=== PATIENT | male | born 1960 | race Caucasian/White ===

== ENCOUNTER → 2022-09-13 09:40 | Outpatient (CLI) | payer OTHER, SELFPAY ==
--- NOTE | ~2022-09-13 | MM_ITS ---
EXAMINATION: MM diagnostic melanie BI w ronan HISTORY: Bilateral tenderness around the nipples TECHNIQUE: MLO and CC 3-D tomosynthesis images of both breasts were performed and synthetic 2-D image s were generated. CAD analysis was submitted and interpreted. COMPARISON: None BREAST PARENCHYMAL COMPOSITION: There are scattered areas of fibroglandular density. FINDINGS: There is mild bilateral gynecomastia. No suspicious mass, architectural distortion, malignant calcification, skin thickening or retraction of either breast is evident. There are occasional benign appearing circumscribed right lymph nodes. IMPRESSION: Bilateral mild gynecomastia; no evidence of malignancy BI-RADS Category 2: Benign finding(s). Reviewed, dictated and finalized at location A.
== END ==
PROVIDERS: PCP Internal Medicine; Visit Provider Internal Medicine
DX: N62 Hypertrophy of breast (principal)
CPT/HCPCS: 77062; 77066; G0279

== ENCOUNTER 2023-10-11 11:18 | Emergency (ER) | payer OTHER, SELFPAY ==
[2023-10-11 11:21] VITALS: BP 186/56; PULSE 76; RESP 19; TEMP 37; O2SAT 99
[2023-10-11 11:40] VITALS: RESP 19; O2SAT 99
--- NOTE | 2023-10-11 12:22 | ED.GENADULT ---
HPI - General Adult General Chief complaint: Unspecified Stated complaint: facial swelling, COVID Time Seen by Provider: 10/11/23 11:45 History of Present Illness HPI narrative: 62-year-old male presents to the emergency department for evaluation for right-sided facial swelling. Patient was diagnosed with COVID on Sunday and started nose and the facial pain and swelling last night. Patient does have history of poor dentition. Related Data Allergies Allergy/AdvReac Type Severity Reaction Status Date / Time No Known Allergies Allergy Verified 10/11/23 11:23 Review of Systems Review of Systems: All systems reviewed & are unremarkable except as noted in HPI and below Exam Narrative: APPEARANCE: Well appearing, no pain, no distress, well-nourished. HEAD: normocephalic, atraumatic. EYES: PERRLA/EOMI, conjunctivae clear. NOSE: Normal no drainage EARS:TMS clear with good light reflex. THROAT: Pharynx clear, no exudate. Mouth: Poor dentition with no abscess amenable to drainage, no trismus NECK: Supple. No adenopathy, no masses. RESPIRATORY: Airway patent, respirations nonlabored. Clear to auscultation bilaterally, no rales, rhonchi, wheezing. CARDIOVASCULAR: Regular rate and rhythm without murmurs rubs or gallops. ABDOMINAL: Soft, nontender, nondistended, normal bowel sounds MUSCULOSKELETAL: Moves all extremities. Strength/ROM intact, No edema, No calf tenderness. NEURO: Alert. Cranial nerves II through XII intact. Grossly intact SKIN: Warm, dry. Normal Color Course Course Emergency Course: Patient was started on antibiotics for dental infection Vital Signs Vital signs: Vital Signs Temperature 98.6 F 10/11/23 11:21 Pulse Rate 76 10/11/23 11:21 Respiratory Rate 19 10/11/23 11:21 Blood Pressure 186/56 H 10/11/23 11:21 Pulse Oximetry 99 10/11/23 11:21 Oxygen Delivery Room Air 10/11/23 11:21 Temperature 98.6 F 10/11/23 11:21 Pulse Rate 76 10/11/23 11:21 Respiratory Rate 19 10/11/23 11:40 Blood Pressure 186/56 H 10/11/23 11:21 Pulse Oximetry 99 10/11/23 11:40 Oxygen Delivery Room Air 10/11/23 11:21 Medical Decision Making MDM Narrative Medical decision making narrative: 62-year-old male presenting to the emergency department for evaluation for facial swelling and dental pain. Patient was started on antibiotics. On exam patient has no abscess amenable to drainage. Vital Signs Vital Signs: Vital Signs Temperature 98.6 F 10/11/23 11:21 Pulse Rate 76 10/11/23 11:21 Respiratory Rate 19 10/11/23 11:21 Blood Pressure 186/56 H 10/11/23 11:21 Pulse Oximetry 99 10/11/23 11:21 Oxygen Delivery Room Air 10/11/23 11:21 Temperature 98.6 F 10/11/23 11:21 Pulse Rate 76 10/11/23 11:21 Respiratory Rate 19 10/11/23 11:40 Blood Pressure 186/56 H 10/11/23 11:21 Pulse Oximetry 99 10/11/23 11:40 Oxygen Delivery Room Air 10/11/23 11:21 Discharge Plan Discharge Clinical Impression: Dental infection Patient Disposition: Home, Self-Care Condition: Stable Instructions: Antibiotic Form Additional Instructions: Antibiotics as directed until completed. Have close follow-up with your dentist. Prescriptions: New amoxicillin-pot clavulanate 875-125 mg tablet 1 tablet PO Q12H Qty: 14 0RF Follow-up/Referrals: Georges,MD Bryan [Primary Care Provider] -
[2023-10-11] MEDS: AMOXICILLIN/CLAVULANATE K 875-125 MG TAB 1 TABLET PO (12:31)
== END 2023-10-11 12:32 | disposition home or self-care (01) ==
PROVIDERS: Emergency Provider Emergency Medicine; PCP Internal Medicine
DX: K04.7 Periapical abscess without sinus (principal); U07.1 COVID-19
CPT/HCPCS: 99283; A9270

== ENCOUNTER 2025-03-02 14:39 | Outpatient (CLI) | payer OTHER, SELFPAY ==
--- NOTE | 2025-03-02 | ECHO_ITS ---
Patient Info Name: Walker Melendez Age: 64 years : 1960 Gender: Male Ht: 72 in Wt: 237 lbs BSA: 2.37 m2 HR: 87 bpm BP: 163 / 72 mmHg Technical Quality: Fair Exam Date: 03/02/2025 2:54 PM Patient Status: O Admit Date: 03/02/2025 Exam Type: CA echo doppler color flow Complete two-dimensional, color flow and Doppler transthoracic echocardiogram is performed. Summary 1. Complete two-dimensional, color flow and Doppler transthoracic echocardiogram is performed. 2. Left ventricular systolic function is normal, estimated at 60-65. 3. The left ventricular diastolic function is normal. 4. The aortic valve is probable trileaflet. 5. There is moderate aortic valve sclerosis. 6. There is no aortic valve stenosis. 7. There is mild aortic valve regurgitation. 8. The mitral valve has mild posterior prolapse. 9. There is no mitral valve regurgitation. Left Ventricle Left ventricular chamber dimension is normal. Left ventricular systolic function is normal, estimated at 60-65. There is no increased left ventricular wall thickness. Left ventricular septal wall motion is normal. The left ventricular diastolic function is normal. Right Ventricle Right ventricular chamber dimension is normal. Right ventricular systolic function is normal. Left Atria Left atrial chamber dimension is normal. Right Atria Right atrial chamber dimension is normal. Aortic Valve The aortic valve is probable trileaflet. There is moderate aortic valve sclerosis. There is no aortic valve stenosis. There is mild aortic valve regurgitation. Pulmonic Valve The pulmonic valve is normal. There is no pulmonic valve stenosis. There is no pulmonic regurgitation. Mitral Valve The mitral valve has mild posterior prolapse. There is no mitral valve stenosis. There is no mitral valve regurgitation. Tricuspid Valve The tricuspid valve leaflets are normal. There is no significant tricuspid valve stenosis. There is mild tricuspid valve regurgitation. Mild pulmonary hypertension, estimated pulmonary arterial systolic pressure is 41 mmHg. Pericardium/Pleural The pericardium appears normal. There is no pericardial effusion. Inferior Vena Cava Normal inferior vena cava with >50% collapse upon inspiration consistent with normal right atrial pressure, 5 mmHg. Aorta The aortic root size at the sinus of Valsalva is normal. The prox ascending aorta size is normal. Left Ventricular Outflow Tract Name Value Normal LVOT 2D LVOT Diameter 2.3 cm LVOT Doppler LVOT Peak Velocity 140 cm/s LVOT Peak Gradient 7 mmHg LVOT Mean Gradient 4 mmHg LVOT VTI 33 cm LVOT VTI/AV VTI Ratio 0.5 LVOT Stroke Volume 135 ml LVOT CO 10.0 l/min LVOT CI 4.2 l/min/m2 Pulmonic Valve Name Value Normal RVOT Doppler RVOT Peak Velocity 78 cm/s RVOT Peak Gradient 2 mmHg PV Doppler PV Peak Velocity 108 cm/s PV Peak Gradient 5 mmHg Mitral Valve Name Value Normal MV Doppler MV Peak Gradient 36 mmHg MV Mean Gradient 16 mmHg MV Area (Cont Eq VTI) 1.8 cm2 MV Diastolic Function MV E Peak Velocity 114 cm/s MV A Peak Velocity 59 cm/s MV E/A 1.9 MV Decel Time (PW) 210 ms Tricuspid Valve Name Value Normal TV Regurgitation Doppler TR Peak Velocity 301 cm/s TR Peak Gradient 31 mmHg Estimated PAP/RSVP RA Pressure 5 mmHg <=5 PA Systolic Pressure 41 mmHg <36 RV Systolic Pressure 41 mmHg <36 TV Annular TDI TV Lateral Karla s' Velocity 17.2 cm/s >=9.5 Aorta Name Value Normal Ascending Aorta Ao Root Diameter (MM) 4.0 cm Ao Root Diam Index (MM) 1.7 cm/m2 Aortic Valve Name Value Normal AV Doppler AV Peak Velocity 264 cm/s AV Peak Gradient 24 mmHg AV Mean Gradient 14 mmHg AV VTI 63 cm AV Area (Cont Eq VTI) 2.1 cm2 >=3.0 AV Area (Cont Eq Wili) 2.1 cm2 AV DI (Wili) 0.53 AV Regurgitation 2D LVOT Area 4.0 cm2 Ventricles Name Value Normal LV Dimensions 2D/MM IVS Diastolic Thickness (2D) 1.0 cm 0.6-1.0 IVS Diastole Thickness (MM) 0.9 cm 0.6-1.0 LVID Diastole (2D) 5.2 cm 4.2-5.8 LVID Diastole (MM) 5.6 cm 4.2-5.8 LVIW Diastolic Thickness (2D) 1.2 cm 0.6-1.0 LVIW Diastolic Thickness (MM) 1.0 cm 0.6-1.0 LVID Systole (2D) 3.2 cm 2.5-4.0 LVID Systole (MM) 3.4 cm 2.5-4.0 LVOT Diameter 2.3 cm LV Mass (2D Cubed) 218.37 g 88.00-224.00 LV Mass Index (2D Cubed) 92 g/m2 49-115 Relative Wall Thickness (2D) 0.45 <=0.42 LV Mass (MM Cubed) 208.80 g 88.00-224.00 LV Mass Index (MM Cubed) 88 g/m2 49-115 Relative Wall Thickness (MM) 0.35 LV Fractional Shortening/Ejection Fraction 2D/MM LV Fractional Shortening (2D) 37 % 25-43 LV Fractional Shortening (MM) 40 % 25-43 LV EF (MM Teichholz) 70 % LV EF (2D Teichholz) 67 % LV Diastolic Volume (4C MOD) 158 ml LV EF (4C MOD) 54 % LV Diastolic Volume (2C MOD) 187 ml LV EF (2C MOD) 57 % LV Diastolic Volume (BP MOD) 173 ml 62-150 LV Diastolic Volume Index (BP MOD) 73 ml/m2 34-74 LV Systolic Volume (BP MOD) 78 ml 21-61 LV Systolic Volume Index (BP MOD) 33 ml/m2 11-31 LV EF (BP MOD) 55 % 52-72 LV Diastolic Length (4C) 9.0 cm LV Systolic Length (4C) 7.6 cm LV Stroke Volume (4C MOD) 85 ml Atria Name Value Normal LA Dimensions LA Dimension (MM) 4.7 cm 3.0-4.0 Report Signatures
--- OUTSIDE RECORDS SUMMARY | 2025-03-02 15:00 | XMS_ITS | Clinical Summary ---
Author Organization [facility] Address [facility] [place] [address] Care Team Providers Care Prosthetic Technician Name Role Phone Bryan Su MD Primary Care Provider Allergies Active Allergy Reactions Criticality Noted Date Comments Lisinopril Rash Low 07/16/2024 Medications atorvastatin (LIPITOR) 40 MG tablet Take 1 tablet (40 mg total) by mouth daily. 08/04/19 23 Active amLODIPine (NORVASC) 10 MG tablet Take 1 tablet (10 mg total) by mouth daily. 30 tablet 2 02/04/20 25 Active semaglutide-we ight management (WEGOVY) 0.25 mg/dose injection (PEN) Inject 0.25 mg every week by subcutaneous route for 30 days. 11/05/19 25 025 Discontinued Active Problems Problem Noted Date Diagnosed Date Bilateral carotid artery stenosis 12/03/2024 Backache 07/16/2024 Enthesopathy of hip region 07/16/2024 Erectile dysfunction due to arterial insufficien cy 07/16/2024 Essential hypertension 07/16/2024 Overview (07/16/2024): Phreesia 12/31/2022 Increased frequency of urination 07/16/2024 Neck pain 07/16/2024 Obesity 07/16/2024 Osteoarthrosis 07/16/2024 Varicose veins of both lower extremities 025 Upper respiratory infection 11/27/2023 Coronary arteriosclerosis 11/22/2023 Persistent insomnia 05/22/2023 Varicose veins of lower extremity 05/22/2023 Decreased testosterone level 10/20/2022 Gynecomastia 08/08/2022 Hypogonadism in male 08/08/2022 Hyperlipidemia 06/16/2022 Vitamin D deficiency 06/16/2022 Erectile dysfunction 05/08/2022 Low vitamin D level 05/08/2022 Polyuria 05/08/2022 Sensorineural hearing loss (SNHL) of both ears 1 03/13/2021 Tinnitus of left ear 01/11/2022 Resolved Problems Problem Noted Date Diagnosed Date Resolved Date Encounter for screening for malignant neoplasm of prostate 07/16/2024 07/21/2024 Encounters Date Type Department Care Team Description 02/03/2025 1:45 PM CLIENT SOLUTIONS SPECIALIST Office Visit [facility], [address] [address] Sherri Aleman MD Consult (CAC per Lung CT) 02/03/2025 Travel 12/30/2024 Telephone [facility], [address] [address] Vipul Waite MD Results 12/30/2024 Orders Only [facility] [address] [address] Vipul Waite MD 12/17/2024 12:40 PM CDT - 12/17/2024 11:59 PM CDT Hospital Encounter [facility] [place] [address] Vipul Waite MD Discharge Disposition: Home or Self Care (Routine Discharge) 12/17/2024 Travel 12/03/2024 2:30 PM CDT Office Visit [facility], [address] [address] Vipul Waite MD Carotid Stenosis 12/03/2024 Orders Only [facility], [address] [address] Vipul Waite MD 12/03/2024 Orders Only [facility], [address] [address] Mariposa Mathur MA 12/03/2024 Travel from Last 3 Months Immunizations Immunization Administration Dates Next Due Arexvy Respiratory Syncytial Virus (RSV, adjuvanted) 0.5 mL, PF 02/22/2023 FLUCELVAX (ccIIV3, TRIVALENT, 0.5mL) 11/14/2023 Influenza (Generic) 02/17/2014,03/15/2012 Influenza Adult (Generic) 12/29/2022,,12/23/2021,2019,03/10/2019,02/06/2018,01/17/2017 Shingrix 08/31/2022,05/10/2022 Tdap (Generic) 05/09/2022 Family History Medical History Relation Comments Stroke Father Alzheimer's disease Mother Relation Status Comments Father Mother Social History Tobacco Use Types Packs/Day Years Used Date Smoking Tobacco: Former Cigarettes Q uit: 03/05/2004 Cigars Passive Smoke Exposure: Never Smokeless Tobacco: Never Alcohol Use Standard Drinks/Week Comments Yes 16.7 (1 standard drink = 0.6 oz pure alcohol) Sex and Gender Information Value Date Recorded Sex Assigned at Male 12/17/2024 12:38 PM CDT Legal Sex Male 2:40 PM CDT Gender Identity Not on file Sexual Orientation Not on file Last Filed Vital Signs Vital Sign Reading Time Taken Comments Blood Pressure 170/64 02/03/2025 1:34 PM CLIENT SOLUTIONS SPECIALIST Pulse 77 02/03/2025 1:34 PM CLIENT SOLUTIONS SPECIALIST Temperature - - Respiratory Rate - - Oxygen Saturation 99% 02/03/2025 1:34 PM CLIENT SOLUTIONS SPECIALIST Inhaled Oxygen Concentration - - Weight 109.6 kg (241 lb 9.6 oz) 02/03/2025 1:34 PM CLIENT SOLUTIONS SPECIALIST Height 182.9 cm (6') 02/03/2025 1:34 PM CLIENT SOLUTIONS SPECIALIST Body Mass Index 32.77 02/03/2025 1:34 PM CLIENT SOLUTIONS SPECIALIST Plan of Treatment Upcoming Encounters Date Type Department Care Team (Late st Contact Info) Description 04/07/2025 1:15 PM CLIENT SOLUTIONS SPECIALIST Office Visit [facility] [address] [facility] [address], [address] [place] [address] Sherri Aleman MD [address] [facility] [address] [place] [address] Health Maintenance Due Date Last Done Comments Colorectal Cancer Screening Colonoscopy (10 Years) 1960 Annual Physical 10/30/1963 Hepatitis C 1978 Pneumococcal Vaccine: 50+ Years (1 of 2 - PCV) 10/30/1979 COVID-19 Vaccine ( - 2024- season) 2024 11/14/2023, 12/29/2022, 09/24/2021, Additional history exists ASCVD LDL 11/12/2024 11/13/2023 Influenza Adult (#1) 2024 11/14/2023, 12/29/2022, 12/28/2021, Additional history exists DTaP, Tdap and Td Vaccines (2 - Td or Tdap) 05/09/2032 05/09/2022 Zoster Vaccines Completed 08/31/2022, 05/10/2022 RSV Immunization or 60+ Years Completed 02/22/2023 Hepatitis A Vaccines Aged Out No long er eligible based on patient's age to complete this topic Meningococcal B Vaccine Aged Out No l onger eligible based on patient's age to complete this topic Meningococcal Vaccine Aged Out No joan emilio eligible based on patient's age to complete this topic RSV Immunizations Under 20 Months Aged Out No longer eligible based on patient's age to complete this topic Procedures Procedure Name Priority Date/Time Associated Diagnosis Comments ELECTROCARDIOGRAM (NON MIDMARK ACQUIRED) Routine 02/03/2025 2:04 PM CLIENT SOLUTIONS SPECIALIST Bilateral carotid artery stenosis USV CAROTID DUPLEX MAIKOL Routine 1:27 PM CDT Carotid stenosis, bilateral LIPID PANEL Routine 11/13/2023 from Last 3 Months or Most Recently Relevant to Health Maintenance Results * ELECTROCARDIOGRAM (02/03/2025 2:04 PM CLIENT SOLUTIONS SPECIALIST) ECG QT 380 [facility] QTC 442 [facility] 02/03/2025 2:04 PM CLIENT SOLUTIONS SPECIALIST Narrative [facility] - 02/06/2025 6:27 PM CLIENT SOLUTIONS SPECIALIST Dao Hernandez [facility] Test Date: 2025-02-03 Pat Name: JF MELENDEZ Department: 112 Room: 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1960 Requested By: SHERRI ALEMAN Order Number: [id number] Reading MD: Woody Diggs Measurements Intervals [place] Rate: 81 P: 54 VT: 163 QRS: 33 QRSD: 114 T: 56 QT: 380 QTc: 442 Interpretive Statements SINUS RHYTHM MODERATE INTRAVENTRICULAR CONDUCTION DELAY No prior ECG for comparison NT SOLUTIONS SPECIALIST Procedure Note Woody Diggs MD - 02/06/2025 Dao Hernandez [facility] Test Date: 2025-02-03 Pat Name: JF MELENDEZ Department: 112 Room: 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1960 Requested By: SHERRI ALEMAN Order Number: [id number] Reading MD: Woody Diggs Measurements Intervals [place] Rate: 81 P: 54 VT: 163 QRS: 33 QRSD: 114 T: 56 QT: 380 QTc: 442 Interpretive Statements SINUS RHYTHM MODERATE INTRAVENTRICULAR CONDUCTION DELAY No prior ECG for comparison NT SOLUTIONS SPECIALIST us Sherri Aleman MD PROCEDURES-ORDERABLE NO CHARGE Final Result [facility] * USV CAROTID DUPLEX MAIKOL (12/17/2024 1:27 PM CDT) Anatomical Region Laterality Modality Neck Vascular Ultraso und 12/17/2024 12:5 7 PM CDT Narrative 12/18/2024 8:46 AM CDT CAROTID ARTERY DUPLEX IMAGING VASCULAR LAB Pat.Name: JF MELENDEZ Pat.ID: [id number] .Date: 12/17/2024 : [id number] PRISCILLA Montague Exam Time: 12:57:00 PM Study Type:LUCAS VS Duplex Carotid BI Age: 8 1960,64Y Sex: M Sonogrphr: Scar Mandujano RDMS, RVT History / Clinical:pt had a lifeline screening, reevaluate GILES Procedures: Nixon scale, Color Doppler imaging, Doppler Spectral Analysis Race: W ++++++++++++++++++++++++++++++++++++ SUMMARY: ++++++++++++++++++++++++++++++++++++ Right side: The right bifurcation-internal carotid artery has heterogeneous plaque. Internal carotid maximum velocity is 114 cm/s, with a ratio of 1.12 . The common carotid artery has no plaque present. The external carotid artery has heterogeneous plaque proximally. Vertebral artery flow is antegrade. No defined ulceration noted. Left side: The left bifurcation-internal carotid artery has heterogeneous plaque. Internal carotid maximum velocity is 115 cm/s , with a ratio of 1.22 . The common carotid artery has no plaque present. The external carotid artery has heterogeneous plaque proximally. Vertebral artery flow is antegrade. No defined ulceration noted. CONCLUSION: The right internal carotid shows heterogeneous plaque and a <50% stenosis. Right vertebral artery is antegrade. No evidence of ulceration. The left internal carotid shows heterogeneous plaque and a <50% stenosis. Left vertebral artery is antegrade. No evidence of ulceration. ++++++++++++++++++++++++++++++++++++ MEASUREMENTS: ++++++++++++++++++++++++++++++++++++ DOPPLER Right Prox CCA Prox CCA PSV 95 cm/s Right Dist CCA Dist CCA PSV 102 cm/s Right Prox ICA Prox ICA PSV 53.1 cm/s Prox ICA EDV 15 cm/s Right Mid ICA Mid ICA PSV 67.3 cm/s Mid ICA EDV 18 cm/s Right Dist ICA Dist ICA PSV 114 cm/s Dist ICA EDV 21.1 cm/s Right Prox ECA Prox ECA PSV 114 cm/s Right Vertebral Vertebral PSV 64.1 cm/s Right ICA/CCA RATIO ICA/CCA RATIO P 1.12 Left Prox CCA Prox CCA PSV 128 cm/s Left Dist CCA Dist CCA PSV 94.2 cm/s Left Prox ICA Prox ICA PSV 112 cm/s Prox ICA EDV 22.3 cm/s Left Mid ICA Mid ICA PSV 102 cm/s Mid ICA EDV 22.3 cm/s Left Dist ICA Dist ICA PSV 115 cm/s Dist ICA EDV 20.6 cm/s Left Prox ECA Prox ECA PSV 111 cm/s Left Vertebral Vertebral PSV 76.3 cm/s Left ICA/CCA RATIO ICA/CCA RATIO P 1.22 <Electronic Signature> 12/18/2024 08:46 AM Vipul Waite M.D. Procedure Note Vipul Waite MD - 12/18/2024 CAROTID ARTERY DUPLEX IMAGING VASCULAR LAB Pat.Name: JF MELENDEZ Pat.ID: [id number] .Date: 12/17/2024 : [id number] PRISCILLA Montague Exam Time: 12:57:00 PM Study Type:LUCAS VS Duplex Carotid BI Age: 8 1960,64Y Sex: M Sonogrphr: Scar Mandujano RDMS, RVT History / Clinical:pt had a lifeline screening, reevaluate GILES Procedures: Nixon scale, Color Doppler imaging, Doppler Spectral Analysis Race: W ++++++++++++++++++++++++++++++++++++ SUMMARY: ++++++++++++++++++++++++++++++++++++ Right side: The right bifurcation-internal carotid artery has heterogeneous plaque. Internal carotid maximum velocity is 114 cm/s, with a ratio of 1.12 . The common carotid artery has no plaque present. The external carotid artery has heterogeneous plaque proximally. Vertebral artery flow is antegrade. No defined ulceration noted. Left side: The left bifurcation-internal carotid artery has heterogeneous plaque. Internal carotid maximum velocity is 115 cm/s , with a ratio of 1.22 . The common carotid artery has no plaque present. The external carotid artery has heterogeneous plaque proximally. Vertebral artery flow is antegrade. No defined ulceration noted. CONCLUSION: The right internal carotid shows heterogeneous plaque and a <50% stenosis. Right vertebral artery is antegrade. No evidence of ulceration. The left internal carotid shows heterogeneous plaque and a <50% stenosis. Left vertebral artery is antegrade. No evidence of ulceration. ++++++++++++++++++++++++++++++++++++ MEASUREMENTS: ++++++++++++++++++++++++++++++++++++ DOPPLER Right Prox CCA Prox CCA PSV 95 cm/s Right Dist CCA Dist CCA PSV 102 cm/s Right Prox ICA Prox ICA PSV 53.1 cm/s Prox ICA EDV 15 cm/s Right Mid ICA Mid ICA PSV 67.3 cm/s Mid ICA EDV 18 cm/s Right Dist ICA Dist ICA PSV 114 cm/s Dist ICA EDV 21.1 cm/s Right Prox ECA Prox ECA PSV 114 cm/s Right Vertebral Vertebral PSV 64.1 cm/s Right ICA/CCA RATIO ICA/CCA RATIO P 1.12 Left Prox CCA Prox CCA PSV 128 cm/s Left Dist CCA Dist CCA PSV 94.2 cm/s Left Prox ICA Prox ICA PSV 112 cm/s Prox ICA EDV 22.3 cm/s Left Mid ICA Mid ICA PSV 102 cm/s Mid ICA EDV 22.3 cm/s Left Dist ICA Dist ICA PSV 115 cm/s Dist ICA EDV 20.6 cm/s Left Prox ECA Prox ECA PSV 111 cm/s Left Vertebral Vertebral PSV 76.3 cm/s Left ICA/CCA RATIO ICA/CCA RATIO P 1.22 <Electronic Signature> 12/18/2024 08:46 AM Vipul Waite M.D. Vipul Waite MD [facility] Final Result * LIPID PANEL (11/13/2023) CHOLESTEROL 160 TRIGLYCERIDES 141 HDL 63 LDL (CALCULATED) 73 Default History Genericprovider LABORATORY Final Result from Last 3 Months or Most Recently Relevant to Health Maintenance Insurance [facility] Care Teams Prosthetic Technician Relationship Specialty Start Date End Date Bryan Su MD [address] [facility] [address] [place] [address] PCP - General INTERNAL MEDICINE 06/20/24
--- OUTSIDE RECORDS SUMMARY | 2025-03-02 15:00 | XMS_ITS | Encounter Summary ---
Author Organization [facility] Address [facility] [place] [address] Care Team Providers Care Care Manager Name Role Phone Bryan Su MD Primary Care Provider Encounter Details Date Type Department Care Team (Late st Contact Info) Description 08/01/2024 Abstract [facility] [phone] Tan Cardoso MA Social History Tobacco Use Types Packs/Day Years Used Date Smoking Tobacco: Never Assessed Sex and Gender Information Value Date Recorded Sex Assigned at Male 12/17/2024 12:38 PM CDT Legal Sex Male 2:40 PM CDT Gender Identity Not on file Sexual Orientation Not on file documented as of this encounter Plan of Treatment Upcoming Encounters Date Type Department Care Team (Late st Contact Info) Description 04/07/2025 1:15 PM CREW CLERK Office Visit [facility] [phone] Sherri Aleman MD 3 [facility] [place] [phone] documented as of this encounter Procedures Procedure Name Priority Date/Time Associated Diagnosis Comments COMPREHENSIVE METABOLIC PANEL Routine 05/20/2024 CBC, MANUAL DIFF Routine 05/20/2024 THYROXINE, FREE (FT4) Routine 05/20/2024 THYROID STIM HORMONE TSH Routine 05/20/2024 COMPREHENSIVE METABOLIC PANEL Routine 11/13/2023 LIPID PANEL Routine 11/13/2023 CBC, MANUAL DIFF Routine 11/13/2023 documented in this encounter Results * COMPREHENSIVE METABOLIC PANEL (05/20/2024) SODIUM S/P/B 141 GLUCOSE 91 mg/dL AST 23 BUN 10 CREATININE S/P/B 0.74 0.7 - 1.3 CALCIUM S/P/B 9.2 POTASSIUM S/P/B 4.7 CHLORIDE S/P/B 105 ALT 20 GFR ESTIMATE 102 Default History Genericprovider LABORATORY Final Result * CBC, MANUAL DIFF (05/20/2024) Pathologist [facility] WBC 7.1 HGB 14.3 HCT 43.6 PLT 154 us Default History Genericprovider LABORATORY Final Result * THYROXINE, FREE (FT4) (05/20/2024) Pathologist [facility] FREE T4 1.33 Default History Genericprovider LABORATORY Final Result * THYROID STIM HORMONE TSH (05/20/2024) TSH 1.110 Default History Genericprovider LABORATORY Final Result * COMPREHENSIVE METABOLIC PANEL (11/13/2023) SODIUM S/P/B 143 GLUCOSE 97 mg/dL AST 25 BUN 17 CREATININE S/P/B 0.79 0.7 - 1.3 CALCIUM S/P/B 9.4 POTASSIUM S/P/B 4.7 CHLORIDE S/P/B 107 ALT 23 GFR ESTIMATE 100 us Default History Genericprovider LABORATORY Final Result * LIPID PANEL (11/13/2023) CHOLESTEROL 160 TRIGLYCERIDES 141 HDL 63 LDL (CALCULATED) 73 us Default History Genericprovider LABORATORY Final Result * CBC, MANUAL DIFF (11/13/2023) WBC 5.7 HGB 14.5 HCT 44.9 PLT 162 us Default History Genericprovider LABORATORY Final Result documented in this encounter Visit Diagnoses Not on filedocumented in this encounter Care Teams Care Manager Relationship Specialty Start Date End Date Bryan Su MD [address] [place] [address] PCP - General INTERNAL MEDICINE 06/20/24 documented as of this encounter
--- OUTSIDE RECORDS SUMMARY | 2025-03-02 15:00 | XMS_ITS | Data Portability ---
Author Organization [place] [employer] Main Office Address [address] [place] [address] Assessment Encounter Date Assessment Date Assessment LastModified by Organization Details LastModified Time 02/13/2023 02/13/2023 05/18/2022: PSA 0.2 Chol 200, TG 181, LDL 120 VIT D 25.8 02/02/2023: VIT D 21.7 Not available 02/13/2023 14:44:22 05/22/2023 05/22/2023 05/18/2022: PSA 0.2 Chol 200, TG 181, LDL 120 VIT D 25.8 02/02/2023: VIT D 21.7 05/08/2023: Testosterone 170L PSA 0.5 VIT D 27.1L Not available 05/21/2023 18:32:41 11/27/2023 11/27/2023 05/18/2022: PSA 0.2 Chol 200, TG 181, LDL 120 VIT D 25.8 02/02/2023: VIT D 21.7 05/08/2023: Testosterone 170L PSA 0.5 VIT D 27.1L 11/13/2023: Stable VIT D 40.8 Not available 11/27/2023 14:28:14 05/27/2024 05/27/2024 05/18/2022: PSA 0.2 Chol 200, TG 181, LDL 120 VIT D 25.8 02/02/2023: VIT D 21.7 05/08/2023: Testosterone 170L PSA 0.5 VIT D 27.1L 11/13/2023: Stable VIT D 40.8 05/20/2024: PSA 0.1 Not available 05/27/2024 14:17:41 11/04/2024 11/04/2024 05/18/2022: PSA 0.2 Chol 200, TG 181, LDL 120 VIT D 25.8 02/02/2023: VIT D 21.7 05/08/2023: Testosterone 170L PSA 0.5 VIT D 27.1L 11/13/2023: Stable VIT D 40.8 05/20/2024: PSA 0.1 10/21/2024: Stable Not available 11/04/2024 14:07:55 Plan of Treatment Reminders Order Date Submit Date Provider Last Modified By Organization Details Last Modified Time Details Appointments Any 15 2025 01:15P Merlyn vazquez MD Not available Not available Not available Lab CMP, serum or plasma 2024 025 [place] [address] [facility], [address], [address], [place], [address], 11/04/2024 14:34:24 CBC w/ auto diff 2024 025 [place] [address] [facility], [address], [address], [place], [address], 11/04/2024 14:34:25 lipid panel, serum 2024 025 [place] [address] [facility], [address], [address], [place], [address], 11/04/2024 14:34:26 TSH + free T4, serum 2024 025 [place] [address] [facility], [address], [address], [place], [address], 11/04/2024 14:34:27 vitamin D, 25-hydrox y, total, serum 2024 025 [place] [address] [facility], [address], [address], [place], [address], 11/04/2024 14:34:28 CMP, serum or plasma 2024 025 georgette Rodriguez, [address], [address], [place], [address], 11/25/2024 09:24:34 CBC w/ auto diff 2024 025 [email or web address] Abdulcoana, [address], [address], [place], [address], 11/25/2024 09:24:34 lipid panel, serum 2024 025 [email or web address] Rodriguez, 20[address], [address], [place], [address], 11/25/2024 09:24:34 TSH + free T4, serum 2024 025 georgette Rodriguez, [address], [address], [place], [address], 11/25/2024 09:24:34 vitamin D, 25-hydrox y, total, serum 2024 025 [email or web address] Rodriguez, [address], [address], [place], [address], 11/25/2024 09:24:34 PSA, total, serum or plasma 2023 024 [email or web address] Rodriguez, [address], [address], [place], [address], 05/28/2024 08:39:45 CMP, serum or plasma 2023 024 georgette Rodriguez, [address], [address], [place], [address], 05/28/2024 08:39:44 CBC w/ auto diff 2023 024 [email or web address] Rodriguez, [address], [address], [place], [address], 05/28/2024 08:39:44 lipid panel, serum 2023 024 [place] [address] [facility], [address], [address], [place], [address], 05/28/2024 08:39:44 TSH + free T4, serum 2023 024 [place] [address] [facility], [address], [address], [place], [address], 05/28/2024 08:39:44 vitamin D, 25-hydrox y, total, serum 2023 024 [place] [address] [facility], [address], [address], [place], [address], 05/28/2024 08:39:44 CMP, serum or plasma 2023 024 [place] [address] [facility], [address], [address], [place], [address], 11/19/2023 11:17:45 CBC w/ auto diff 2023 024 [place] [address] [facility], [address], [address], [place], [address], 11/19/2023 11:17:46 lipid panel, serum 2023 024 [place] [address] [facility], [address], [address], [place], [address], 11/19/2023 11:17:46 TSH + free T4, serum 2023 024 [place] [address] [facility], [address], [address], [place], [address], 11/19/2023 11:17:46 vitamin D, 25-hydrox y, total, serum 2023 024 [email or web address] [facility], [address], [address], [place], [address], 11/19/2023 11:17:46 PSA, total, serum or plasma 2022 023 [email or web address] Abdulcoana, [address], [address], [place], [address], 08/15/2023 09:05:15 noninvasi ve colorecta l cancer DNA + occult blood screening , QL, stool 2022 023 [facility], [address], [address], [place], [address], 02/14/2023 12:49:57 testoster one, free + total, serum 2022 023 [email or web address] [facility], [address], [address], [place], [address], 09/05/2023 10:07:45 CMP, serum or plasma 2022 023 [email or web address] Rodriguez, [address], [address], [place], [address], 08/15/2023 09:05:15 CBC w/ auto diff 2022 023 [email or web address] Rodriguez, [address], [address], [place], [address], 05/13/2023 09:45:35 lipid panel, serum 2022 023 [email or web address] Abdulco, [address], [address], [place], [address], 08/15/2023 09:05:15 TSH + free T4, serum 2022 023 [email or web address] Abdulcoana, [address], [address], [place], [address], 08/15/2023 09:05:15 vitamin D, 25-hydrox y, total, serum 2022 023 [email or web address] [facility], [address], [address], [place], [address], 08/15/2023 09:05:15 Referral cardiolog ist referral - Please call patient to schedule an appointme nt. Thank you. 2024 025 [email or web address] Vipul Waite MD, [address] [facility], [address], [place], [address], 02/03/2025 09:00:39 urologist referral - Please call patient to schedule an appointme nt. Thank you. 2024 025 [email or web address], [address], [place], [address], 02/03/2025 09:00:39 urologist referral - Please call patient to schedule an appointme nt. Thank you. 2024 025 [email or web address] [address], [address], [place], [address], 08/26/2024 11:31:40 cardiolog ist referral - Please call patient to schedule an appointme nt. Thank you. 2024 025 [email or web address] Vipul Waite MD, [address], [address], [place], [address], 09/18/2024 08:18:07 cardiolog ist referral - Please call patient to schedule an appointme nt. Thank you. 2024 025 [email or web address] [place], [address] [address] , [address], [place], [address], 08/26/2024 11:31:42 urologist referral 2023 024 [email or web address] Hua Salazar MD, [address], [address], [place], [address], 11/28/2023 17:12:02 cardiolog ist referral - Please call patient to schedule. 2023 024 [place], [address] [address], [address], [address], 06/26/2024 09:25:51 cardiolog ist referral - Please call patient to schedule. 2023 024 [place], [address] [address], [address], [place], [address], 06/26/2024 09:25:53 urologist referral 2023 024 [email or web address] Salazar MD, [address], [address], [place], [address], 05/20/2024 10:06:29 cardiolog ist referral 2023 024 [place], [address] [address], [address], [place], [address], 05/20/2024 10:06:31 cardiolog ist referral - please call pt to schedule leatha 2022 023 [email or web address] Morocho MD, [address], [address], [place], [address], 09/10/2023 08:38:46 Procedures None recorded. Surgeries None recorded. Imaging LDCT, chest, for lung cancer screening [address] ([facility]), [address], [place], [address], 11/05/2024 12:06:42 LDCT, chest, for lung cancer screening 2024 [address] [facility], [address] [place] [address] [address], [place], [address], 06/04/2024 15:37:05 LDCT, chest, for lung cancer screening [address]23 [email or web address] [place] [address] ([facility]), [address] [place], [address], 06/20/2023 08:48:56 Medication Orders Wegovy 0.25 mg/0.5 mL subcutane ous pen injector 2024 025 [email or web address] [facility], [address] [place], [address], 11/05/2024 11:39:33 Zithromax Z-Art 250 mg tablet 2023 024 [email or web address] [facility], [address] [place], [address], 05/27/2024 14:09:16 trazodone 50 mg tablet 2023 024 JHONNY [id number], [address] , [place], [address], 05/22/2023 14:47:31 ergocalci ferol (vitamin D2) 1,250 mcg (50,000 unit) capsule 2023 024 marielos mccall [id number], [address] , [place], [address], 05/27/2024 14:18:23 Patient TargetsNo targets recorded. Patient InstructionsNo instructions recorded. Reason for Referral [employer] Referral for Es sential hypertension please call pt to schedule leatha Referring Physician: Bryan Su, Internal Medicine, Encounter Date: 02/13/2023 Urologist Referral for Male hypogonadism Referring Physician: Murtuza Bahrainwala, Internal Medicine, Encounter Date: 05/22/2023 Parts Professional Referral for Va ricose veins of lower extremity Referring Physician: Edgard Paulino, Encounter Date: 05/22/2023 Urologist Referral for Male hypogonadism Referring Physician: Edgard Paulino, Encounter Date: 11/27/2023 [employer] Professional Referral for Va ricose veins of lower extremity Please call patient to schedule. Referring Physician: Edgard Paulino, Encounter Date: 11/27/2023 [employer] Professional Referral for Co ronary arteriosclerosis Please call patient to schedule. Referring Physician: Edgard Paulino, Encounter Date: 11/27/2023 Urologist Referral for Male hypogonadism Please call patient to schedule an appointment. Thank you. Referring Physician: Edgard Paulino, Encounter Date: 05/27/2024 [employer] Professional Referral for Va ricose veins of lower extremity Please call patient to schedule an appointment. Thank you. Referring Physician: Edgard Paulino, Encounter Date: 05/27/2024 [employer] Professional Referral for Co ronary arteriosclerosis Please call patient to schedule an appointment. Thank you. Referring Physician: Edgard Paulino, Encounter Date: 05/27/2024 Urologist Referral for Male hypogonadism Please call patient to schedule an appointment. Thank you. Referring Physician: Edgard Paulino, Encounter Date: 11/04/2024 [employer] Professional Referral for Va ricose veins of lower extremity Please call patient to schedule an appointment. Thank you. Referring Physician: Edgard Paulino, Encounter Date: 11/04/2024 Results Created Date Observation Date Name Description Value Unit Range Abnormal Flag Note LastModifiedBy Organization Detail LastModifiedTime 02/15/20 23 02/14/2023 COLOG UARD cologuard result Cancel led - Duplic ate Order not applic able Not Available [facility] [address], [place], [address], 02/14/2023 12:49:57 03/21/19 24 03/21/2023 COLOG UARD cologuard result reportable NEGATI VE negati ve normal NEGAT MARK TEST RESUL T. A negat mark Colog uard resul t indic ates a low likel ihood that a color ectal cance r (CRC) or advan marilu adeno ma (alexandru omato us polyp s with more advan marilu pre-m align ant featu res) is prese nt. The chanc e that a perso n with a negat mark Colog uard test has a color ectal cance r is less than 1 in 1500 (nega tive predi ctive value >99.9 %) or has an advan marilu adeno ma is less than 5.3% (nega tive predi ctive value 94.7% ). These data are based on a prosp ectiv e cross -sect ional study of ,00 0 indiv idual s at [place] risk for color ectal cance r who were scree belinda with both Colog uard and colon oscop y. (Jeronimo Davidson et al, N Engl J Med 2014; 370(1 4):12 86-12 97) The wendi l value (refe rence range ) for this assay is negat mark. COLOG UARD RE-SC REENI NG RECOM MENDA TION: Perio dic color ectal cance r scree mariana is an impor tant part of preve ntive healt hcare for asymp tomat ic indiv idual s at [place] ge risk for color ectal cance r. Follo wing a negat mark Colog uard resul t, the Ameri can Cance r Socie ty and U.S. Multi -Soci ety Task Force scree mariana guide lines recom mend a Colog uard re-sc reeni ng inter ruel of 3 years . Refer ences : Ameri can Cance r Socie ty Guide line for Color ectal Cance r Scree mariana: https ://nessa w.can cer.o rg/ca ncer/ colon -rect al-ca ncer/ detec tion- diagn osis- stagi ng/ac s-rec ommen datio ns.ht ml.; Red AMARAL, Rolly thomas CR, Jude GRULLON, Color ectal Cance r Scree mariana: Recom menda tions for Physi cians and Patie nts from the U.S. Multi -Soci ety Task Force on Color ectal Cance r Scree mariana , Mayelin mcmahanntyasmin rolog y 2017; 112:1 016-1 030. TEST DESCR IPTIO N: [place] site algor ithmi c seda sis of stool DNA-b cristela grier with hemog lobin immun oassa y. Quant itati ve value s of indiv idual bioma rkers are not repor table and are not assoc iated with indiv idual bioma rker resul t refer ence range s. Colog uard is inten ded for color ectal cance r scree mariana of adult s of eithe r sex, 45 years or older , who are at [facility] for color ectal cance r (CRC) . Colog uard has been appro emy for use by the U.S. FDA. The perfo rmanc e of Colog uard was estab lishe d in a cross secti onal study of [facility] adult s aged 50-84 . Colog uard perfo rmanc e in patie nts ages 45 to 49 years was estim ated by maria t-g stephen seda sis of near- age group s. Colon oscop ies perfo rmed for a posit mark resul t may find as the most clini reema signi ficevie t lesio n: color ectal cance r [4.0% ], advan marilu adeno ma (incl uding sessi le loki hilary polyp s great er than or equal to 1cm diame ter) [20%] or non- advan marilu adeno ma [31%] ; or no color ectal neopl lukasz [45%] . These estim ates are deriv ed from a prosp ectiv e cross -sect ional scree mariana study of 10,00 0 indiv idual s at [place] ge risk for color ectal cance r who were scree belinda with both Colog uard and colon oscop y. (Jeronimo Davidson et al, N Engl J Med 2014; 370(1 4):12 86-12 97.) Colog uard may produ ce a false negat mark or false posit mark resul t (no color ectal cance r or preca ncero us polyp prese nt at colon oscop y follo w up). A negat mark Colog uard test resul t does not guara ntee the absen ce of CRC or advan marilu adeno ma (pre- cance r). The curre nt Colog uard scree mariana inter ruel is every 3 years . (Amer ican Cance r Socie ty and U.S. Multi -Soci ety Task Force ). Colog uard perfo rmanc e data in a 10,00 0 patie nt pivot al study using colon oscop y as the refer ence metho d can be acces sed at the follo wing locat ion: www.e xactl abs.c om/re louis . Addit ional descr iptio n of the Colog uard test proce ss, warni ngs and preca ution s can be found at www.c ologu lurdes.c om. Not Available [facility] [address], [place], [address], 03/30/2023 00:48:30 09/03/19 24 09/03/2023 LDCT, chest , for lung cance r scree mariana No observ ation record ed. [facility] [address], [place], [address], 09/03/2023 17:07:45 Result Notes None recorded. Problems Name Problem SNOMED Code Status Onset Date Resolution Date Notes Provider Name and Address Organization Details Recorded Time Backache 085875437 Completed Not Available [facility] 3 04:55:07 Enthesopa thy of hip region 76973957 Active Not Available [facility] 3 04:55:08 Osteoarth ritis 177254346 Active Not Available [facility] 3 04:55:08 Obesity 710423899 Active Not Available [facility] 3 04:55:08 Upper respirato ry infection 47299794 Completed Bryan ospina MD [address], [address], [place], [address] , [facility] [employer] [facility] [employer] [facility] 4 14:23:37 Essential hypertens ion 47865724 Active Not Available [facility] 3 04:55:08 Neck pain 04994041 Completed Not Available [facility] 3 04:55:08 Sensorine ural hearing loss of bilateral ears 978878704 Active 2021 Not Available [facility] 3 04:55:08 Tinnitus of left ear 34464704409 06 Active 2021 Not Available [facility] 3 04:55:08 Sensorine ural hearing loss 69580146 Active 2021 Not Available [facility] 3 04:55:08 Erectile dysfuncti on 085891039 Active 2022 Bryan ospina MD [address], [address], [place], [address] , [facility] [employer] [facility] [employer] [facility] 3 14:46:25 Polyuria 68913359 Active 2022 Bryan ospnia MD [address], [address], [place], [address] , [facility] [employer] [facility] [employer] [facility] 3 14:47:43 Vitamin D below reference range 474255842 Active 2022 Bryan ospina MD [address], [address], [place], [address] , [facility] [employer] [facility] 3 14:48:35 Hyperlipi demia 53244075 Active 2022 Anastasia membreno, [facility] 3 12:00:45 Vitamin D deficienc y 69611037 Active 2022 Anastasia membreno, [facility] [employer] [facility] 3 12:01:07 Male hypogonad ism 03027757 Active 2022 Bryan ospina MD [address], [address], [place], [address] , [facility] [employer] [facility] [employer] [facility] 3 15:23:19 Gynecomas tia 9964895 Active 2022 Bryan ospina MD [address], [address], [place], [address] , [employer] [facility] [employer] [facility] 3 15:23:43 Testoster one level below reference range 902332602 Active 2022 Anastasia membreno, [employer] [facility] [employer] [facility] 3 10:48:07 Varicose veins of lower extremity 96686274 Active 2023 Bryan ospina MD [address], [address], [place], [address] , [employer] [facility] [employer] [facility] 4 14:44:29 Persisten t insomnia 660225252 Active 2023 Bryan ospina MD [address], [address], [place], [address] , [employer] [facility] [employer] [facility] 4 14:45:58 Coronary arteriosc lerosis 66312844 Active 2023 Bryan ospina MD [address], [address], [place], [address] , [employer] [facility] [employer] [facility] 4 18:46:57 Upper respirato ry infection 67256656 Active 2023 Bryan ospina MD [address], [address], [place], [address] , [facility] [employer] [facility] [employer] [facility] 4 14:23:37 Body mass index 30+ - obesity 494399504 Active 2024 Bryan ospina MD [address] [place], [address], [place], [address] , [place] [facility] 5 14:33:04 Problem Notes None recorded. Procedures Surgical History Date Name Laterality Status Provider Name and Address Organization Details Recorded Time Orthopedic Surgery completed Not Available [facility] 05/03/2022 04:44:13 Appendectomy completed Not Available [facility] 04:44:13 Orthopedic Surgery completed Not Available [facility] 05/03/2022 04:44:13 Imaging Results None recorded. Procedure Notes None recorded. Medical Equipment None Reported. Allergies Allergen ID Allergen Name Allergen Category Reaction Reaction Severity Criticality Documentation Date Start Date Code Code System Note Provider Name and Address Organization Details Recorded Time 9103 lisinopri l medicatio n rash Not available Not available 05/03/2022 26652 RxNorm Not Available [facility] 3 05:07:49 Medications Name Sig Start Date Stop Date Status Note LastModified by Organization Details LastModified Time blood pressu solution kit 05/09 completed Not Available Not Available Not Available [facility] 08/08 completed Not Available Not Available Not Available amoxicill in 500 mg capsule Take 1 capsule 3 times a day by oral route for 7 days. 02/16 completed Not Available Not Available Not Available atorvasta tin 40 mg tablet TAKE 1 TABLET BY MOUTH EVERY DAY active Not Available Not Available No t Available trazodone 50 mg tablet TAKE 1 TABLET BY MOUTH EVERY DAY NEEDED FOR 90 DAYS active Not Available Not Available No t Available sildenafi l 50 mg tablet Take 1 tablet twice a week by oral route for 90 days. 2022 active Not Available Not Available Not Avai lable azithromy josue 250 mg tablet TAKE 2 TABLETS BY MOUTH TODAY, THEN TAKE 1 TABLET DAILY FOR 4 DAYS DIRECTED 05/27 completed Not Available Not Available Not Available ibuprofen 800 mg tablet Take 1 tablet 3 times a day by oral route. active Not Available Not Available No t Available metoprolo l succinate ER 50 mg tablet,ex tended release 24 hr Take 1 tablet every day by oral route for 30 days. active Not Available Not Available No t Available hydrocodo ne 5 mg-acetam inophen 325 mg tablet Take 1 tablet 3 times a day by oral route. 02/16 completed Not Available Not Available Not Available lisinopri l 20 mg tablet Take 1 tablet every day by oral route for 30 days. active Not Available Not Available No t Available metoprolo l succinate ER 100 mg tablet,ex tended release 24 hr Take 1 tablet every day by oral route as directed for 30 days. 01/11 completed Not Available Not Available Not Available amlodipin e 5 mg tablet Take 1 tablet every day by oral route as directed for 30 days. 02/16 completed Not Available Not Available Not Available hydrocodo ne 10 mg-acetam inophen 325 mg tablet 07/05 completed Not Available Not Available Not Available tramadol 50 mg tablet Take 1 tablet every 6 hours by oral route. active Not Available Not Available No t Available hydroxyzi ne HCl 25 mg tablet Take 1 tablet 3 times a day by oral route. active Not Available Not Available No t Available hydrochlo rothiazid e 25 mg tablet Take 1 tablet every day by oral route in the morning. 07/05 completed Not Available Not Available Not Available ergocalci ferol (vitamin D2) 1,250 mcg (50,000 unit) capsule TAKE 1 CAPSULE EVERY WEEK BY ORAL ROUTE. 05/27 completed Not Available Not Available Not Available methylpre dnisolone 4 mg tablets in a dose pack take as directed 01/12 completed Not Available Not Available Not Available naproxen 500 mg tablet Take 1 tablet twice a day by oral route. active Not Available Not Available No t Available amoxicill in 875 mg-potass ium clavulana te 125 mg tablet TAKE 1 TABLET BY MOUTH EVERY 12 HOURS 11/26 completed Not Available Not Available Not Available cyclobenz aprine 5 mg tablet Take 1 tablet 3 times a day by oral route. active Not Available Not Available No t Available Fluvirin 6504-0484 45 mcg (15 mcg x 3)/0.5 mL intramusc ular suspensio n active Not Available Not Available Not Available Flucelvax Quad 8477-6397 (PF) 60 mcg (15 mcg x 4)/0.5 mL IM syringe ADM 0.5ML IM UTD active Not Available Not Available No t Available Afluria Qd 2018- (36 mos up)(PF)60 mcg (15 mcg x4)/0.5 mL IM syringe ADM 0.5ML IM UTD 02/16 completed Not Available Not Available Not Available Fluzone Quad (PF) 60 mcg (15 mcg x 4)/0.5 mL IM syringe ADM 0.5ML IM UTD 02/16 completed Not Available Not Available Not Available Wegovy 0.25 mg/0.5 mL subcutane ous pen injector Inject 0.25 mg every week by subcutan eous route for 30 days. 2024 active Approved wegovy. Valid: 11/05/24-. PA# [id number]. Not Available Not Available Not Available Tlando 112.5 mg capsule TAKE TWO CAPSULES BY MOUTH TWICE DAILY IN THE MORNING AND IN THE EVENING WITH FOOD 11/26 completed Not Available Not Available Not Available Vitals Date Recorded Body height Body mass index (BMI) Body weight Body temperature Heart rate Systolic And Diastolic Provider Name and Address Organization Details Last Updated DateTime 4 182.88 cm 34.9 kg/m2 276026. 24 g 97.8 [degF] 78 /min 130/66 mm[Hg] THEODORE Pollock [employer] 4 14:28:34 Date Recorded Body height Body mass index (BMI) Body weight Heart rate Oxygen saturation Body temperature Systolic And Diastolic Provider Name and Address Organization Details Last Updated DateTime 5 182.88 cm 33 kg/m2 457336. 95 g 82 /min 97 % 96.5 [degF] 138/60 mm[Hg] Arielle Abad MA [employer] 5 14:12:23 Date Recorded Body height Body mass index (BMI) Body weight Body temperature Heart rate Oxygen saturation Pain severity - 0-10 verbal numeric rating [Score] - Reported Systolic And Diastolic Provider Name and Address Organization Details Last Updated DateTime 5 182.88 cm 32.8 kg/m2 289891. 35 g 96.9 [degF] 83 /min 98 % 0 148/64 mm[Hg] Ana Tobias MA [employer] 5 14:02:07 Date Recorded Body height Body mass index (BMI) Body weight Body temperature Heart rate Systolic And Diastolic Provider Name and Address Organization Details Last Updated DateTime 4 182.88 cm 32.7 kg/m2 220094. 76 g 97.6 [degF] 78 /min 124/60 mm[Hg] THEODORE Pollock [facility] [employer] [facility] 4 14:06:11 Date Recorded Body height Body mass index (BMI) Body weight Body temperature Heart rate Systolic And Diastolic Provider Name and Address Organization Details Last Updated DateTime 3 182.88 cm 34.7 kg/m2 900107. 65 g 97.4 [degF] 84 /min 138/68 mm[Hg] THEODORE Pollock [facility] [employer] [facility] 3 14:40:43 Social History Question Answer Notes LastModified by Organization Details LastModified Time Tobacco Smoking Status Former Smoker Quit in 2007 SONNY Yip [facility] [employer] [facility] 08/08/2022 14:42:57 Do You Have An Advance Directive? No Information not available 05/09/2022 What Is Your Level Of Caffeine Consumption? Moderate [id number] [id number] Information not available 05/03/2022 How Much Tobacco Do You Chew? None [id number] [id number] Information not available 05/03/2022 In The 14 Days Before Symptom Onset, Have You Had Close Contact With A Laboratory-conf irmed COVID-19 While That Case Was Ill? No Information not available 08/08/2022 In The 14 Days Before Symptom Onset, Have You Had Close Contact With A Person Who Is Under Investigation For COVID-19 While That Person Was Ill? No [email or web address] Information not available 08/08/2022 What Type Of Diet Are You Following? REGULAR MIGRATION.0301 [id number] Information not available 05/03/2022 Which Illicit Or Recreational Drugs Have You Used? Marijuana Occational [email or web address] Information not available 08/08/2022 What Is The Highest Grade Or Level Of School You Have Completed Or The Highest Degree You Have Received? [id number] [email or web address] Information not available 08/08/2022 Have There Been Any Changes To Your Family Or Social Situation? No Information not available 11/04/2024 What Is The Fluoride Status Of Your Home? Unknown [email or web address] Information not available 08/08/2022 When Did You Quit Smoking? 11-15yearssincelnoemy urban [email or web address] Information not available 08/08/2022 Are There Any Guns Present In Your Home? No [email or web address] Information not available 08/08/2022 Where Do You Live? SingleLevelHouse [email or web address] Information not available 08/08/2022 Do You Have A Medical Power Of Research Development Director? No [email or web address] Information not available 08/08/2022 What Was The Date Of Your Most Recent Tobacco Screening? 11/04/2024 Information not available 11/04/2024 Do You Have Any Pets? Yes [email or web address] Information not available 08/08/2022 What Is Your Relationship Status? Information not available 05/09/2022 Do You Have Smoke And Carbon Monoxide Detectors In Your Home? Yes [email or web address] Information not available 08/08/2022 Are You Passively Exposed To Smoke? No [email or web address] Information not available 08/08/2022 Are There Any Smokers In Your House? No [email or web address] Information not available 08/08/2022 Do You Use Sunscreen Routinely? No [email or web address] Information not available 08/08/2022 Have You Recently Traveled Abroad? No [email or web address] Information not available 08/08/2022 Have You Used IV Drugs? No Information not available 11/04/2024 Sex: Male Functional Status Question Answer Note LastModified by Organization Details LastModified Time Do you use any illicit or recreational drugs? Yes [email or web address] Information not available 08/08/2022 Do you or have you ever used any other forms of tobacco or nicotine? Yes [email or web address] Information not available 08/08/2022 What is your level of alcohol consumption? Occasional MIGRATION.0301 [id number] Information not available 05/03/2022 Do you or have you ever used smokeless tobacco? Never used [email or web address] tobacco Information not available 05/09/2022 Are you currently employed? 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 Current user of electronic cigarettes occasionally vapes [email or web address] Information not available 08/08/2022 What is your exercise level? Moderate MIGRATION.0301 [id number] Information not available 05/03/2022 Mental Status Question Answer Note LastModified by Organization D etails LastModified Time Do you feel stressed (tense, restless, nervous, or anxious, or unable to sleep at night)? [id number] [email or web address] Information not available 08/08/2022 Family History Relationship Description Onset Age of this Age Resolved Age Notes LastModified by Organization Details LastModified Time Mother Diabetes mellitus [id number] Not available 05/03/2022 04:44:19 Father Heart disease Not available 2022 14:05:49 Medical History Condition Response NERVE DISEASE N BLINDNESS N RHEUMATIC FEVER N KIDNEY STONES N BLADDER PROBLEMS N MRSA N OTHER # 1 Y POLIO N LUNG DISEASE/DISORDER N HISTORY OF DRUG ABUSE N COPD N RADIATION / CHEMOTHERAPY N Other # 2 N BLOOD DISEASES N EAR OR HEARING PROBLEMS N MUMPS N SHINGLES N BOWEL PROBLEMS N DEPRESSION (INCLUDING POST ) N FAILED BACK SYNDROME N STROKE/TIA N ULCERS N BENIGN PROSTATIC HYPERPLASIA N MEASLES N HYPOTENSION N MYOCARDIAL INFARCTION N OBESITY N GERD/NAUSEA N ANEURYSM N URINARY/BLADDER/KIDNEY PROBLEMS N CORONARY ARTERY DISEASE (CAD) N Do you have Advance directive? N ADDICTION CONCERNS N ENDOMETRIOSIS N Impotence N USE OF BLOOD THINNERS N SKIN PROBLEMS N GASTROINTESTINAL DISORDER N PARATHYROID DISEASE N PERIPHERAL VASCULAR DISEASE N MUSCLE,JOINT OR BONE PROBLEMS N GASTROINTESTINAL BLEEDING N BLOOD CLOTS N ASTHMA N Abdominal Pain N CATARACTS N ARTERIAL INSUFFICIENCY N ERECTILE DYSFUNCTION N VARICOSITIES N GI PROBLEMS N CHF N Low Testosterone N INFERTILITY N AIDS/HIV N FRACTURES N CHEMOTHERAPY / RADIATION N LIVER DISEASE N MALE HYPOGONADISM N HYPERTENSION Y Deficiency N TOURETTE'S N ANXIETY DISORDER N BLOOD TRANSFUSION N ANEMIA/BLOOD DISORDER N CHRONIC EAR INFECTIONS N TUBERCULOSIS N GLAUCOMA N FOOT PROBLEM N DIVERTICULITIS N CHICKENPOX N SLEEP APNEA N BACK INJECTIONS N ALLERGIES/HAYFEVER N INFECTIOUS DISEASE N HEART ARRHYTHMIA N PROSTATE N ESRD N INSOMNIA N HIGH CHOLESTEROL / HYPERLIPIDEMIA N HYPERTHYROIDISM N EYE PROBLEMS N PVD N EDEMA N CHRONIC PAIN SYNDROME N HYPOTHYROIDISM N CONSTIPATION N CAROTID BLOCKAGE N BACK / NECK PROBLEMS N ATHEROSCLEROSIS N BREAST PROBLEMS N DIALYSIS N POLYCYSTIC OVARIES N ECZEMA N HISTORY WITH COMPLICATIONS WITH ANESTHES IA ? N OSTEOPOROSIS N ARTHRITIS N APPENDICITIS N DIABETES, TYPE N BAD TEETH N VON WILLIBRAND'S DISEASE N ENT N SEASONAL ALLERGIES N HEARTBURN / REFLUX N GI N AUTISM SPECTRUM DISORDER (ASD) N POST LAMINECTOMY SYNDROME N HEPATITIS / LIVER DISEASE N GOUT N SLEEP DISORDER N ALZHEIMER'S DISEASE N Brain Problems N HERPES N DEMENTIA N HEADACHES/MIGRAINES N SEIZURES/EPILEPSY N VASCULAR DISEASE N PACEMAKER N DIZZINESS N HEART DISEASE/HEART PROBLEMS N KIDNEY DISEASE N MULTIPLE SCLEROSIS N NEUROPSYCHOLOGICAL N CARDIAC ARRHYTHMIA N CANCER: SPECIFY N ANESTHESIA COMPLICATIONS N ATRIAL FIBRILLATION N Gall Stones N PULMONARY EMBOLISM N AUTOIMMUNE DISEASE N Immunizations Vaccine Type Date Status Note Provider Nam e and Address Organization Details Recorded Time Influenza, split virus, quadrivalent, PF 2 completed THEODORE Pollock, [facility] [employer] [facility] 12/21/2023 12:08:59 Influenza, adjuvanted, quadrivalent, PF 2 completed THEODORE Pollock null, [facility] [employer] [facility] 12/21/2023 12:08:59 COVID-19 mRNA, bivalent, original/Omicron BA.1, Non-US Vaccine Product, Pfizer-BioNTech 1 completed THEODORE Pollock, [facility] [employer] [facility] 12/21/2023 12:08:59 COVID-19 mRNA, bivalent, original/Omicron BA.1, Non-US Vaccine Product, Pfizer-BioNTech 2 completed THEODORE Pollock, [facility] [employer] [facility] 12/21/2023 12:08:59 COVID-19 mRNA, bivalent, original/Omicron BA.1, Non-US Vaccine Product, Pfizer-BioNTech 1 completed THEODORE Pollock null, [place] [employer] [facility] [employer] [facility] 12/21/2023 12:08:59 Influenza, MDCK, trivalent, PF 4 completed THEODORE Pollock null, [facility] [employer] [facility] 12/21/2023 12:10:41 COVID-19, mRNA, LNP-S, PF, tommy-sucrose, 30 mcg/0.3 mL 4 completed THEODORE Pollock, [facility] [employer] 12/21/2023 12:11:02 influenza, seasonal, intradermal, preservative free 3 completed Not Available [facility] 11/04/2024 14:29:06 Influenza, split virus, trivalent, preservative 4 completed Not Available [facility] 11/04/2024 14:29:06 Influenza, MDCK, quadrivalent, PF 7 completed Not Available [facility] 11/04/2024 14:29:06 Influenza, split virus, quadrivalent, PF 0 completed Not Available [facility] 11/04/2024 14:29:06 COVID-19, mRNA, LNP-S, PF, 30 mcg/0.3 mL dose 1 completed Not Available [facility] 11/04/2024 14:29:06 zoster recombinant 3 completed Not Available [facility] 11/04/2024 14:29:06 zoster recombinant 3 completed Not Available [facility] 11/04/2024 14:29:06 COVID-19, mRNA, LNP-S, PF, tommy-sucrose, 30 mcg/0.3 mL 3 completed Not Available [facility] 11/04/2024 14:29:06 Influenza, MDCK, quadrivalent, PF 3 completed Not Available [facility] 11/04/2024 14:29:06 RSV, recombinant, protein subunit RSVpreF, adjuvant reconstituted, 0.5 mL, PF 3 completed Not Available [facility] 11/04/2024 14:29:06 Influenza, split virus, quadrivalent, preservative 0 completed Not Available [facility] 05/03/2022 05:07:21 Influenza, split virus, quadrivalent, PF 8 completed Not Available [facility] 05/03/2022 05:07:21 Tdap 3 completed Bryan Su MD [address] [facility], [facility] [address], [place], [address], [facility] [employer] 06/11/2022 15:10:44 Past Encounters Encounter ID Performer Location Encounter Start Date Encounter Closed Date Diagnosis/Indication Diagnosis SNOMED-CT Code Diagnosis ICD10 Code Diagnosis IMO Codes Diagnosis Note [id number] [facility] Merritt Bhagat [address] [place] [address] 06/02/2020 00:00:00 06/02/2020 13:57:42 [id number] Samuel Ness MD [facility] [place] [address] [place] [address] 01/12/2022 00:00:00 01/12/2022 15:35:02 [id number] Bryan ospina MD [facility] [place] [address] [place] [address] 05/09/2022 13:54:28 05/09/2022 14:51:32 Screening - NAD 909640076 Z13.9 C-scope: Get if not done, wants cologuard Get yearly flu shotUTD on tdap 05/09/2022 Can do shingrix vaccineGet COVID 19 vaccine and its boosters RTC in 3 months, do labsER if worse, he did verbalize his understand ing of the above Essential hypertension 83393618 I10 Get labsNot on any meds Screening for malignant neoplasm of prostate 873941999 Z12.5 Screening for malignant neoplasm of colon 692201977 Z12.11 Ex-cigarette smoker 2810 90669 Z87.891 Quit 18 years [id number] for 30 years [place] at age 65 yearsDoes well now Tinnitus of left ear 831 2407335 106 H93.12 Get a referral to ENT Erectile dysfunction 860 818737 F52.21 Get on viagra, explained how to take the med Polyuria 46771974 R35.89 No UTI sx, just increased urinationM ay need to see urology, get UA with labs Vitamin D below reference range 655388419 E55.9 Administra tion of diphtheria, pertussis, and tetanus vaccine 017453260 Z23 [id number] Bryan ospina MD [facility] [place] [address] [place] [id number] 08/08/2022 14:41:29 08/08/2022 15:24:48 Screening - NAD 072250411 Z13.9 C-scope: States that he got a letter from [facility] that he can only do this 03/2023 as he did have this in 2020 Get yearly flu shotUTD on tdap 05/09/2022 Can do shingrix vaccineGet COVID 19 vaccine and its boosters RTC in 6 months, do labsER if worse, he did verbalize his understand ing of the above Essential hypertension 94117264 I10 Get labsNot on any meds Ex-cigarette smoker 2810 88398 Z87.891 Quit 18 years [id number] for 30 years [place] [employer] at age 65 yearsDoes well now Tinnitus of left ear 224 8299678 106 H93.12 Get a referral to ENT ENT 06/05/2022 , f/u PRN Erectile dysfunction 860 548424 F52.21 On viagra, explained how to take the med Polyuria 59589033 R35.89 No UTI sx, just increased urinationM ay need to see urology, get UA with labs Vitamin D below reference range 892159274 E55.9 Hyperlipidemia 40899557 E78.5 On atorvastat in 40mg dailyGet labs Male hypogonadism 066300 06 E29.1 Gynecomastia 7450486 N62 Has noted some gynecomast ia, has noted [id number] Bryan ospina MD [facility] [address], [facility] [address] [place] [address] 02/13/2023 14:32:52 02/13/2023 15:00:28 Screening - NAD 634889568 Z13.9 C-scope: States that he got a letter from [facility] that he can only do this 03/2023 as he did have this in 2020 Get yearly flu shotUTD on tdap 05/09/2022 Can do shingrix vaccineGet COVID 19 vaccine and its boostersCa n do RSV vaccine Mammogram : 3: Breast pain: Mild gynecomast ia RTC in 6 months, do labsER if worse, he did verbalize his understand ing of the above Essential hypertension 89946275 I10 Get labsNot on any medsCardio logy apt should be made Ex-cigarette smoker 2810 29156 Z87.891 Quit 18 years [id number] for 30 years [place] [employer] at age 65 yearsDoes well now Tinnitus of left ear 292 0280312 106 H93.12 Get a referral to ENT ENT 06/05/2022 , f/u PRN Erectile dysfunction 860 920087 F52.21 On viagra, explained how to take the med Polyuria 70266773 R35.89 No UTI sx, just increased urinationM ay need to see urology, get UA with labs Vitamin D below reference range 990162958 E55.9 On weekly vit dGet labs Hyperlipidemia 13445186 E78.5 On atorvastat in 40mg dailyGet labs Male hypogonadism 447325 06 E29.1 Did see urology, on Tlando and repeat the testostero ne level Screening for malignant neoplasm of prostate 606975893 Z12.5 Screening for malignant neoplasm of colon 250646319 Z12.11 [id number] Bryan ospina MD [facility] [place] [address] [facility], [address] [place] [address] 05/22/2023 14:11:22 05/22/2023 14:48:57 Screening - NAD 075854234 Z13.9 C-scope: Cologuard 03/21/2023 : Negative Get yearly flu shotUTD on tdap 05/09/2022 Can do shingrix vaccineGet COVID 19 vaccine and its boostersCa n do RSV vaccine Mammogram : 3: Breast pain: Mild gynecomast ia RTC in 6 months, as per his wishes do labsER if worse, he did verbalize his understand ing of the above Essential hypertension 57875359 I10 Get labsNot on any medsCardio logy apt should be made Ex-cigarette smoker 2810 19705 Z87.891 Quit 18 years [id number] for 30 years [place] [employer] 04/28/2023 : Life Line screening: NegativeCA D screenin04/28/2023 : Mild bilPAD: Normal: 04/28/2023 Does well now Tinnitus of left ear 458 4617350 106 H93.12 Get a referral to ENT ENT 06/05/2022 , f/u PRN Erectile dysfunction 860 157011 F52.21 On viagra, explained how to take the med Polyuria 96995845 R35.89 No UTI sx, just increased urinationM ay need to see urology, get UA with labs Vitamin D below reference range 605377845 E55.9 On weekly vit dGet labs Hyperlipidemia 48658732 E78.5 On atorvastat in 40mg dailyGet labs Male hypogonadism 617286 06 E29.1 Did see urology, on Tlando and repeat the testostero ne level Varicose v eins of lower extremity 85100273 I83.893 Has noted some achyness and also some cold feet, will refer to Dr Cage [facility] Persistent insomnia 1919 12865 G47.09 Intermitte ntAgreeabl e to start on trazodone, side effects explained [id number] Bryan ospina MD [facility] [address] [facility], [facility] [address] [place] [address] 11/27/2023 13:58:42 11/27/2023 14:27:23 Screening - NAD 068842734 Z13.9 C-scope: Cologuard 03/21/2023 : Negative Get yearly flu shotUTD on tdap 05/09/2022 Can do shingrix vaccineGet COVID 19 vaccine and its boostersCa n do RSV vaccine Mammogram : 3: Breast pain: Mild gynecomast ia RTC in 6 months, as per his wishes do labsER if worse, he did verbalize his understand ing of the above Essential hypertension 33167447 I10 Get labsNot on any medsCardio logy apt should be made Ex-cigarette smoker 2500 34586 Z87.891 Quit 18 years [id number] for 30 years [place] [employer] 04/28/2023 : Life Line screening: NegativeCA D screenin04/28/2023 : Mild bilPAD: Normal: 04/28/2023 Does well now LDCT 09/03/2023 : CAD Tinnitus of left ear 281 1244315 106 H93.12 Get a referral to ENT ENT 06/05/2022 , f/u PRN Erectile dysfunction 860 849014 F52.21 On viagra, explained how to take the med Polyuria 90299178 R35.89 No UTI sx, just increased urinationM ay need to see urology, get UA with labs Vitamin D below reference range 541794120 E55.9 On weekly vit dGet labs Hyperlipidemia 67102927 E78.5 On atorvastat in 40mg dailyGet labs Male hypogonadism 508448 06 E29.1 Did see urology, on Tlando and repeat the testostero ne level Varicose v eins of lower extremity 62640091 I83.893 Has noted some achyness and also some cold feet, will refer to Dr Cage [facility] Persistent insomnia 1919 15933 G47.09 Intermitte ntAgreeabl e to start on trazodone, side effects explained Coronary arteriosclerosis 07244392 I25.10 LDCT 09/03/2023 : CAD, does need to see cardiology Screening for malignant neoplasm of prostate 999223875 Z12.5 Upper resp iratory infection 75190619 J06.9 Was diagnosed with COVID 19 one month ago as per his history, returned from flying last week, now has a sore throat, no fevers or chills, no SOB or chest painsGet on Z-pack, notify if not better, ER if worse [id number] Bryan ospina MD [facility] [address] [facility], [address] [place] [address] 05/27/2024 13:53:36 05/27/2024 14:33:58 Screening - NAD 057503069 Z13.9 C-scope: Cologuard 03/21/2023 : Negative Get yearly flu shotUTD on tdap 05/09/2022 Can do shingrix vaccineGet COVID 19 vaccine and its boostersCa n do RSV vaccine Mammogram : 3: Breast pain: Mild gynecomast ia RTC in 6 months, as per his wishes do labsER if worse, he did verbalize his understand ing of the above Essential hypertension 77655256 I10 Get labsNot on any medsCardio logy apt should be made Ex-cigarette smoker 2810 49074 Z87.891 Quit 18 years [id number] for 30 years [place] [employer] 04/28/2023 : Life Line screening: NegativeCA D screenin04/28/2023 : Mild bilPAD: Normal: 04/28/2023 Does well now LDCT 09/03/2023 : CAD Tinnitus of left ear 808 7988069 106 H93.12 Get a referral to ENT ENT 06/05/2022 , f/u PRN Erectile dysfunction 860 971075 F52.21 On viagra, explained how to take the med Polyuria 13308304 R35.89 No UTI sx, just increased urinationM ay need to see urology, get UA with labs Vitamin D below reference range 674991454 E55.9 VIT D 36.7 05/20/2024 Get labs Hyperlipidemia 28138859 E78.5 On atorvastat in 40mg dailyGet labs Male hypogonadism 019869 06 E29.1 Did see urology, on Tlando and repeat the testostero ne level Varicose v eins of lower extremity 42806589 I83.893 Has noted some achyness and also some cold feet, will refer to Dr Niles HERMOSILLO 05/27/2024 : Referred again Persistent insomnia 1919 26932 G47.09 Intermitte ntAgreeabl e to start on trazodone, side effects explained Coronary arteriosclerosis 74193267 I25.10 LDCT 09/03/2023 : CAD, does need to see cardiology , referred again 05/27/2024 [id number] Bryan ospina MD [facility] [address] [facility], [address] [place] [address] 11/04/2024 13:55:09 11/04/2024 14:34:40 Screening - NAD 455346492 Z13.9 C-scope: Cologuard 03/21/2023 : Negative Get yearly flu shotUTD on tdap 05/09/2022 Can do shingrix vaccineGet COVID 19 vaccine and its boostersCa n do RSV vaccine Mammogram : 3: Breast pain: Mild gynecomast ia RTC in 6 months, as per his wishes do labsER if worse, he did verbalize his understand ing of the above Essential hypertension 84388882 I10 Get labsNot on any medsCardio logy apt should be made Ex-cigarette smoker 1480 79974 Z87.891 Quit 18 years [id number] for 30 years [place] [employer] 04/28/2023 : Life Line screening: NegativeCA D screenin04/28/2023 : Mild bilPAD: Normal: 04/28/2023 Does well now LDCT 09/03/2023 : CAD Tinnitus of left ear 938 7773139 106 H93.12 Get a referral to ENT ENT 06/05/2022 , f/u PRN Erectile dysfunction 860 551604 F52.21 On viagra, explained how to take the med Polyuria 95879718 R35.89 No UTI sx, just increased urinationM ay need to see urology, get UA with labs Vitamin D below reference range 876686723 E55.9 VIT D 36.7 05/20/2024 Get labs Hyperlipidemia 55777009 E78.5 On atorvastat in 40mg dailyGet labs Male hypogonadism 202951 06 E29.1 Did see urology, on Tlando and repeat the testostero ne level Varicose v eins of lower extremity 40877095 I83.893 Has noted some achyness and also some cold feet, will refer to Dr Niles HERMOSILLO 05/27/2024 : Referred again Persistent insomnia 1919 78208 G47.09 Intermitte ntAgreeabl e to start on trazodone, side effects explained Coronary arteriosclerosis 09012154 I25.10 LDCT 09/03/2023 : CAD, does need to see cardiology , referred again 05/27/2024 Body mass index 30+ - obesity 987362054 E66.9 3972215 Eager to start on GLP-1No history of MEN2, MCT or thyroid or parathyroi d complaints , no pancreatic complaints Explained all the side effects including hypoglycem ia and visual changesMus t hydrate and use supplement sAlso get the pen to demonstrat e its use Health Concerns Section Related Observation LastModified by Organization Detai ls LastModified Time None Recorded Concern Status LastModified by Organization Details LastModified Time None Recorded Advance Directives Directive N: Payers Insurance Date Sequence Insurance Name Policy Number Policy Bill Covered Member ID Bill Member ID Guarantor Name 05/21/2024 1 [employer] [id number] Walker Melendez [id number] Walker Melendez 11/10/2024 1 [facility] (PPO) [id number] Walker Melendez [id number] Walker Melendez Notes Date Note Type Note Provider Name and Address Organization Details Recorded Time 02/13/2023 text/html O V005/09/2022:Here for his establish care apt Past Hx:HTN Reviewed social family and surgical history Here to discuss above and get labs doneC/o some L tinnitus also wants to get pill for ED OV 08/08/2022:Here for his f/u apt, he is doing well, he did not yet do the labs OV 02/13/2023: Here for his f/u apt, he is doing well today, he did do the labs on 02/02/2023 Bryan Su MD [address], [address], [place], [address], [employer] 02/13/2023 17:56:38 05/22/2023 text/html O V005/09/2022:Here for his establish care apt Past Hx:HTN Reviewed social family and surgical history Here to discuss above and get labs doneC/o some L tinnitus also wants to get pill for ED OV 08/08/2022:Here for his f/u apt, he is doing well, he did not yet do the labs OV 02/13/2023: Here for his f/u apt, he is doing well today, he did do the labs on 02/02/2023 OV 05/22/2023: Here for his routine apt, he is doing well today, did do the labs on 05/08/2023 Bryan Su MD [address], [address], [place], [address], [employer] 05/22/2023 14:50:06 11/27/2023 text/html O V005/09/2022:Here for his establish care apt Past Hx:HTN Reviewed social family and surgical history Here to discuss above and get labs doneC/o some L tinnitus also wants to get pill for ED OV 08/08/2022:Here for his f/u apt, he is doing well, he did not yet do the labs OV 02/13/2023: Here for his f/u apt, he is doing well today, he did do the labs on 02/02/2023 OV 05/22/2023: Here for his routine apt, he is doing well today, did do the labs on 05/08/2023 OV 11/27/2023: Here for his routine apt, he feels well today, did do the labs, he is getting a URI sx, did fly in and noted a 'sore throat', no fevers or chills Bryan Su MD [address], [address], [place], [address], [employer] 11/27/2023 14:43:47 05/27/2024 text/html O V005/09/2022:Here for his establish care apt Past Hx:HTN Reviewed social family and surgical history Here to discuss above and get labs doneC/o some L tinnitus also wants to get pill for ED OV 08/08/2022:Here for his f/u apt, he is doing well, he did not yet do the labs OV 02/13/2023: Here for his f/u apt, he is doing well today, he did do the labs on 02/02/2023 OV 05/22/2023: Here for his routine apt, he is doing well today, did do the labs on 05/08/2023 OV 11/27/2023: Here for his routine apt, he feels well today, did do the labs, he is getting a URI sx, did fly in and noted a 'sore throat', no fevers or chills OV 05/27/2024: Here for his f/u apt, he is doing well today, he did do the labs, has not seen cardiology Bryan Su MD [address], [address], [place], [address], [employer] 05/27/2024 14:44:00 11/04/2024 text/html O V005/09/2022:Here for his establish care apt Past Hx:HTN Reviewed social family and surgical history Here to discuss above and get labs doneC/o some L tinnitus also wants to get pill for ED OV 08/08/2022:Here for his f/u apt, he is doing well, he did not yet do the labs OV 02/13/2023: Here for his f/u apt, he is doing well today, he did do the labs on 02/02/2023 OV 05/22/2023: Here for his routine apt, he is doing well today, did do the labs on 05/08/2023 OV 11/27/2023: Here for his routine apt, he feels well today, did do the labs, he is getting a URI sx, did fly in and noted a 'sore throat', no fevers or chills OV 05/27/2024: Here for his f/u apt, he is doing well today, he did do the labs, has not seen cardiology OV 11/04/2024: Here for his f/u apt, he feels well today, he did do the labs, wants to be on the GLP-1 for obesity Bryan Su MD [address], [address], [place], [address], [place] [facility] [employer] [facility] [email or web address] 11/10/2024 09:28:43
== END 2025-03-02 14:40 | disposition home or self-care (01) ==
PROVIDERS: PCP Internal Medicine
DX: I25.10 Atherosclerotic heart disease of native coronary artery without angina pectoris (principal); R01.1 Cardiac murmur, unspecified; I35.1 Nonrheumatic aortic (valve) insufficiency
CPT/HCPCS: 93306